=== PATIENT | female | born 1995 | race Caucasian/White ===

== ENCOUNTER 2016-08-08 04:46 | Emergency (ER) | payer BC ==
[~2016-08-08] VITALS: Ht 170.2 cm; Wt 166.0 kg
[2016-08-08] MEDS ORDERED: ONDANSETRON INJ 2 MG/ML 2 ML VIAL IV STA (04:54)
[2016-08-08] MEDS ORDERED: SODIUM CHLORIDE 0.9% 1000ML 1,000 ML IV STA (04:54)
[2016-08-08] MEDS ORDERED: MoRPHine SULFATE 4 MG/ML 1 ML CARP\\VIAL IV STA (04:54)
[2016-08-08 05:00] VITALS: TEMP 36.6; Ht 170.2 cm; Wt 166.0 kg
[2016-08-08 05:03] LABS: MANUAL MICROSCOPIC REQUIRED? YES; URINE APPEARANCE CLEAR (CLEAR); URINE BILIRUBIN NEG (NEG); URINE COLOR YELLOW; URINE NITRITE NEG (NEG); URINE SPECIFIC GRAVITY >= 1.030 (1.000-1.030); UROBILINOGEN NEG (NEG)
[2016-08-08 05:09] LABS: REVIEW REQ? NO
[2016-08-08 05:11] LABS: URINE BACTERIA 2+ (NEG); URINE WBC 0 /hpf (0-5); ZZUR CULT IF INDIC CLEAN CATCH YES
[2016-08-08] MEDS ORDERED: OPTIRAY 320 IV PRN (05:15)
[2016-08-08 05:19] LABS: BASO % 0.2 %; BASO ABS # 0.02 K/uL (0-0.2); COMPLETE YES; EOS % 0.6 %; HEMATOCRIT 36.2 % (37-47); IG% 0.3 %; LYMPH % 31.5 %; LYMPH ABS # 3.26 K/uL (1.2-3.4); MEAN CELL VOLUME 74.2 fL (80-100); MEAN CORPUSCULAR HGB CONC 32.3 g/dl (32-36); MEAN PLATELET VOLUME 11.2 fL (7.4-10.4); MONO % 8.5 %; NEUT % 58.9 %; PLATELET COUNT 212 K/uL (130-400); RED BLOOD COUNT 4.88 M/uL (4.2-5.4); WHITE BLOOD COUNT 10.36 K/uL (4.8-10.8)
[2016-08-08 05:35] LABS: BUN/CREATININE RATIO 14.9 (10-20); CALCIUM 8.2 mg/dl (8.5-10.1); CREATININE 0.89 mg/dl (0.60-1.20); POTASSIUM 3.6 mmol/L (3.5-5.1)
[2016-08-08 05:38] LABS: ALB/GLOB RATIO 0.8 (0.9-2)
--- NOTE | 2016-08-08 06:51 | DIAGNOSTIC IMAGING REPORT ---
ABDOMEN AND PELVIS CT WITH IV CONTRAST CT DOSE: 1353.86 mGycm HISTORY: Pain. Nausea. RLQ abd pain/groin pain TECHNIQUE: Multiaxial CT images of the abdomen and pelvis were performed following the use of intravenous contrast. COMPARISON STUDY: None. FINDINGS: Lung bases are clear. Liver spleen and pancreas are unremarkable. Prior cholecystectomy. Kidneys enhance uniformly. No evidence for hydronephrosis. Bowel pattern suggests a mild nonobstructive ileus. The appendix is identified and is air-filled and unremarkable. Uterus is anteflexed. Bladder is midline. There are no contained bladder calcifications. IMPRESSION: No acute process abdomen or pelvis. Prior cholecystectomy. Normal appendix. Electronically signed by: Erasmo Fernandes M.D. 08/08/2016 6:50 AM Dictated Date/Time: 08/08/2016 6:48 AM
--- NOTE | 2016-08-08 07:11 | EMERGENCY ROOM VISIT NOTE ---
History First contact with patient: 04:49 Chief Complaint: ABDOMINAL PAIN Stated Complaint: ABDOMINAL PAIN Nursing Triage Summary: Patient arrived via ems. ems reports patient has right lower quadrant abdominal pain. history of kidney stones. History of Present Illness The patient is a 21 year old female who presents to the Emergency Department via EMS for evaluation of her RIGHT lower quadrant abdominal pain. The patient reports that her symptoms developed this evening. Her symptoms progressively worsened which prompted her visit to the emergency department. She does report a history of kidney stones as well as endometriosis. She currently is been evaluated by her [employer] for possible endometriosis. The patient reports associated nausea. She's had no vomiting. She denies any vaginal bleeding or spotting. She denies any hematuria or dysuria. The patient rates her current discomfort as an 8/10. She denies any headaches, dizziness, chest pain, palpitations, short of breath, pleuritic pain, hematochezia, or melena. She denies any joanna hematuria or dysuria. Review of Systems A complete 10-point Review of Systems was discussed with the patient, with pertinent positives and negatives listed in the History of Present Illness. All remaining Review of Systems questions can be considered negative unless otherwise specified. Social History Smoking Status: Never Smoker Alcohol Use: none Drug Use: none Marital Status: single Housing Status: lives with roommate Occupation Status: [employer] student Current/Historical Medications No Active Prescriptions or Reported Meds Allergies Coded Allergies: No Known Allergies (Unverified , 08/08/16) Physical Exam Vital Signs Date Time Temp Pulse Resp B/P Pulse Ox O2 Delivery O2 Flow Rate FiO2 08/08/16 07:30 78 16 146/88 98 08/08/16 06:34 84 18 145/84 96 Room Air 08/08/16 05:00 36.6 122 18 161/85 94 Room Air Pain Rating (0-10): 8 Physical Exam VITAL SIGNS - Vital signs and nursing notes were reviewed. GENERAL - 21-year-old female appearing her stated age who is in no acute distress. Communicates well with provider and answers questions appropriately. LUNGS - Chest wall symmetric without accessory muscle use, intercostals retractions, or central cyanosis. Normal vesicular breath sounds CTA B/L. No wheezes, rales, or rhonchi appreciated. CARDIAC - RRR with S1/S2. No murmur, rubs, or gallops appreciated. ABDOMEN - Abdominal contour obese and without pulsations or visible masses. BS normoactive all four quadrants. Mild tenderness to palpation appreciated in the RIGHT lower quadrant. No guarding. No Rebound Tenderness. Negative Rovsing's. Negative Calvert's. No palpable masses, hepatosplenomegaly, or ascites noted. PSYCH - A&Ox3 and cooperates fully with examiner. Pt is very pleasant and interacts well with examiner. Medical Decision & Procedures ER Provider Diagnostic Interpretation: Radiological imaging and reports were reviewed by myself. Radiologist's Interpretation as follows: ABDOMEN AND PELVIS CT WITH IV CONTRAST CT DOSE: 1353.86 mGycm HISTORY: Pain. Nausea. RLQ abd pain/groin pain TECHNIQUE: Multiaxial CT images of the abdomen and pelvis were performed following the use of intravenous contrast. COMPARISON STUDY: None. FINDINGS: Lung bases are clear. Liver spleen and pancreas are unremarkable. Prior cholecystectomy. Kidneys enhance uniformly. No evidence for hydronephrosis. Bowel pattern suggests a mild nonobstructive ileus. The appendix is identified and is air-filled and unremarkable. Uterus is anteflexed. Bladder is midline. There are no contained bladder calcifications. IMPRESSION: No acute process abdomen or pelvis. Prior cholecystectomy. Normal appendix. Laboratory Results 08/08/16 05:00 Red Blood Count 4.88, Mean Corpuscular Volume 74.2, Mean Corpuscular Hemoglobin 24.0, Mean Corpuscular Hemoglobin Concent 32.3, Mean Platelet Volume 11.2, Neutrophils (%) (Auto) 58.9, Lymphocytes (%) (Auto) 31.5, Monocytes (%) (Auto) 8.5, Eosinophils (%) (Auto) 0.6, Basophils (%) (Auto) 0.2, Neutrophils # (Auto) 6.11, Lymphocytes # (Auto) 3.26, Monocytes # (Auto) 0.88, Eosinophils # (Auto) 0.06, Basophils # (Auto) 0.02 08/08/16 05:00 Test 08/08/16 04:50 08/08/16 05:00 Urine Color YELLOW Urine Appearance CLEAR (CLEAR) Urine pH 6.0 (4.5-7.5) Urine Specific [place] >= 1.030 (1.000-1.030) Urine Protein NEG (NEG) Urine Glucose (UA) NEG (NEG) Urine Ketones NEG (NEG) Urine Occult Blood TRACE (NEG) Urine Nitrite NEG (NEG) Urine Bilirubin NEG (NEG) Urine Urobilinogen NEG (NEG) Urine Leukocyte Esterase NEG (NEG) Urine RBC 5-10 /hpf (0-4) Urine WBC 0 /hpf (0-5) Urine Epithelial Cells >30 /lpf (0-5) Urine Bacteria 2+ (NEG) Urine Test NEG (NEG) White Blood Count 10.36 K/uL (4.8-10.8) Red Blood Count 4.88 M/uL (4.2-5.4) Hemoglobin 11.7 g/dL (12.0-16.0) Hematocrit 36.2 % (37-47) Mean Corpuscular Volume 74.2 fL (80-100) Mean Corpuscular Hemoglobin 24.0 pg (25-34) Mean Corpuscular Hemoglobin Concent 32.3 g/dl (32-36) Platelet Count 212 K/uL (130-400) Mean Platelet Volume 11.2 fL (7.4-10.4) Neutrophils (%) (Auto) 58.9 % Lymphocytes (%) (Auto) 31.5 % Monocytes (%) (Auto) 8.5 % Eosinophils (%) (Auto) 0.6 % Basophils (%) (Auto) 0.2 % Neutrophils # (Auto) 6.11 K/uL (1.4-6.5) Lymphocytes # (Auto) 3.26 K/uL (1.2-3.4) Monocytes # (Auto) 0.88 K/uL (0.11-0.59) Eosinophils # (Auto) 0.06 K/uL (0-0.5) Basophils # (Auto) 0.02 K/uL (0-0.2) RDW Standard Deviation 44.5 fL (36.4-46.3) RDW Coefficient of Variation 16.3 % (11.5-14.5) Immature Granulocyte % (Auto) 0.3 % Immature Granulocyte # (Auto) 0.03 K/uL (0.00-0.02) Anion Gap 7.0 mmol/L (3-11) Est Creatinine Clear Calc Drug Dose 163.2 ml/min Estimated GFR () 107.4 Estimated GFR (Non- 92.6 BUN/Creatinine Ratio 14.9 (10-20) Calcium Level 8.2 mg/dl (8.5-10.1) Total Bilirubin 0.2 mg/dl (0.2-1) Aspartate Amino Transf (AST/SGOT) 14 U/L (15-37) Alanine Aminotransferase (ALT/SGPT) 29 U/L (12-78) Alkaline Phosphatase 58 U/L (45-117) Total Protein 7.2 gm/dl (6.4-8.2) Albumin 3.2 gm/dl (3.4-5.0) Globulin 4.0 gm/dl (2.5-4.0) Albumin/Globulin Ratio 0.8 (0.9-2) Lipase 193 U/L (73-393) Date/Time Source Procedure Growth Status 08/08/16 04:50 Urine , Clean Catch Urine Culture - Final MORE THAN THREE TYPES OF ORGANISMS VT... Complete Medications Administered Medications (Trade) Dose Ordered Sig/Susana Route Start Time Stop Time Status Last Admin Dose Admin Sodium Chloride (Nss 1000ml) 1,000 ml @ 999 mls/hr Q1H1M STAT IV 08/08/16 04:54 08/08/16 05:54 DC 08/08/16 05:10 999 MLS/HR Ondansetron HCl (Zofran Inj) 4 mg NOW STAT IV 08/08/16 04:54 08/08/16 04:55 DC 08/08/16 05:08 4 MG Morphine Sulfate (MoRPHine SULFATE INJ) 4 mg NOW STAT IV 08/08/16 04:54 08/08/16 04:55 DC 08/08/16 05:08 4 MG ED Course Patient was seen and evaluated by myself. Labs are drawn, saline lock in place. The patient was hydrated with a 1000 mL normal saline bolus. She received 4 mg morphine and [address] of the abdomen and pelvis with IV contrast was ordered. Laboratory results demonstrate no acute leukocytosis, worrisome anemia, or bandemia. The patient has no significant electrolyte abnormalities. Urinalysis does not suggest infection. CT results above. Laboratory results and imaging studies were reviewed with the patient and her family who acknowledges understanding. She was encouraged to continue to follow with her [employer] as well as primary care provider for continued management. She was educated on worrisome symptoms for return visit to the emergency department. The patient was provided a home pack for Ultram for breakthrough pain. Patient discharged home in good condition with her family driving. Medical Decision Given the patient's presentation and stated complaints, I did elect to perform the above-mentioned workup. The patient resents today with lower abdominal discomfort in the RIGHT lower quadrant. She has no fever. She has no rebound rigidity or guarding. The patient most recently has been evaluated for endometriosis. Her CT demonstrate no acute findings today. Her pain was adequately controlled with 1 dose of morphine. The patient is resting comfortably and without complaints of pain at this time. Her labs demonstrate no acute findings otherwise. She'll follow-up with her specialists as well as her primary care provider from today's visit. She will return in the setting of changing/worsening symptoms. Patient discharged home afebrile and in good condition. In the evaluation and treatment of this patient, the following differential diagnoses were considered: Appendicitis, Diverticulitis, Diverticulosis, Colitis , Ischemic Colitis, Inflammatory Bowel Disease, Irritable Bowel Disease, Ovarian Torsion, Kidney Stone, Pyelonephritis, Hydronephrosis, Cholecystitis, Ascending Cholangitis, Choledocholithiasis, GERD. Impression Primary Impression: Right lower quadrant abdominal pain Departure Information Dispostion Home / Self-Care Condition GOOD Prescriptions No Active Prescriptions or Reported Meds Referrals No Doctor, Assigned (PCP) Patient Instructions Abdominal Pain - [facility], [facility], [facility]
[2016-08-08] MEDS ORDERED: TRAMADOL HCL 50 MG HOME PACK PO ONE (07:15)
[2016-08-08 07:30] VITALS: BP 146/88; PULSE 78; O2SAT 98
== END 2016-08-08 07:35 | disposition home or self-care (01) ==
LOC: EDBD 04:46 → C.EDB 04:47
DX: R10.31 Right lower quadrant pain (principal); Z87.442 Personal history of urinary calculi